=== PATIENT | female | born 1970 | race Caucasian/White ===

== ENCOUNTER 2021-07-20 11:46 | Inpatient (IN) | payer MEDICARE, MEDICAID ==
[~2021-07-20] VITALS: Ht 152.4 cm; Wt 54.9 kg
--- NOTE | ~2021-07-20 | EMS ---
[address] [address] EMS Patient Care Report Name: MAGDALENE PRABHAKAR Room: [address] IN [facility]#: [id number] Admission: 07/20/21 Attend Phys: Tonya Neff MD Discharge: Date of : 72 Report #: [id number] THIS REPORT FOR: //name// Report Transmitted: 07/20/2021 22:06 EMS Care Summary [facility] [place] [id number] @ 07/20/2021 10:53 Incident Location [address] [place], [place] [id number] Patient MAGDALENE PRABHAKAR Female, 51 Years 1970 Patient Address [address] [place] [address] Patient History Unspecified asthma,Cerebral palsy, unspecified,Spina bifida, unspecified, Patient Allergies No known allergies, Patient Medications Albuterol, levocetirizine, Ondansetron, Epipen, Chief Complaint Nausea Disposition Transported No Lights/[place] Dispatch Reason Sick Person Transported To [facility] Narrative [facility] DISP[facility]ED TO [facility]. [facility] RESPONDS WITH NO DELAYING FACTORS. UPON ARRIVAL PT IS SITTING IN RECLINER UNDER TWO BLANKETS. PT IS ALERT AND ORIENTED AT BASELINE WITH PATENT AIRWAY. PT NURSING STAFF STATES PT BEING NON-VERBAL. PT KNOWS BASIC SIGN LANGUAGE. PT HAS MANUAL VITALS OBTAINED WITH [address] [address] EMS Patient Care Report Name: MAGDALENE PRABHAKAR Room: [address] IN [facility]#: [id number] Admission: 07/20/21 Attend Phys: Tonya Neff MD Discharge: Date of : 72 Report #: [id number] LUNG SOUNDS PRESENTING CLEAR. PT NURSING STAFF STATES PT VOMITING FOR ONE WEEK AND PRESENTED THIS MORNING WITH FEVER. NURSING STAFF STATES ADMINISTERING TYLENOL AT 1050 TO PT. PT TAKES TWO STEPS TO STRETCHER AND IS ASSISTED INTO POSITION OF COMFORT. PT IS SECURED TO STRETCHER AND TRANSPORTED TO AMBULANCE WITH NO INCIDENT. ONCE IN AMBULANCE PT IS PLACED ON MONITOR. PT HAS GLUCOSE OBTAINED. PT REMAINS ALERT AND ORIENTED AT BASELINE DURING TRANSPORT. PT REMAINS ON MONITOR DURING TRANSPORT. COVID PRECAUTIONS ACTIVATED PRIOR TO ARRIVAL OF DESTINATION. AT DESTINATION PT IS REMOVED FROM MONITOR. PT IS TRANSPORTED INTO FACILITY WITH NO INCIDENT. PT IS TRANSFERRED TO ER4 BED VIA BLANKET WITH ASSISTANCE FROM NURSING STAFF. PT IS STABLE AT TIME OF PT CARE TRANSFER. PT CARE IS TRANSFERRED. FACILITY SIGNED ON PT BEHALF DUE TO PT NOT HAVING RIGHTS ON MEDICAL DECISIONS. [facility] CLEAR. Initial Vitals @11:08SpO2: 97, @11:13SpO2: 99, @11:28SpO2: 97, @11:12 @11:17 @11:27 @11:13P: 76,R: 18,BP: 113/80, @11:08P: 99,R: 18,BP: 130/82, @11:13GCS: 15, @11:08GCS: 15, @11:00Glucose: 88, Assessments @11:00MENTAL:SKIN:HEENT:LUNG SOUNDS:ABDOMEN:PELVIS//GI:EXTREMITIES:PULSE:NEURO: Impression Nausea Procedures @11:12 3-Lead ECG Response: UnchangedSucceeded @11:17 3-Lead ECG Response: UnchangedSucceeded @11:27 3-Lead ECG Response: UnchangedSucceeded Timeline 00:00,Call Received 10:52,Dispatch Notified 10:52,Psap Call 10:53,Dispatched 10:54,En Route 10:59,[place] [address] EMS Patient Care Report Name: MAGDALENE PRABHAKAR Room: [address] IN [facility]#: [id number] Admission: 07/20/21 Attend Phys: Tonya Neff MD Discharge: Date of : 72 Report #: [id number] 11:00,At Patient 11:00,BP: / M,PULSE: ,RR: R,SPO2: Ox,ETCO2: ,B,PAIN: ,GCS: , 11:08,BP: / M,PULSE: ,RR: R,SPO2: 97 Ox,ETCO2: ,BG: ,PAIN: ,GCS: , 11:08,BP: 130/82 M,PULSE: 99,RR: 18 R,SPO2: Ox,ETCO2: ,BG: ,PAIN: ,GCS: , 11:08,BP: / M,PULSE: ,RR: R,SPO2: Ox,ETCO2: ,BG: ,PAIN: ,GCS: 15, 11:12,3-Lead ECG,Response: UnchangedSucceeded, 11:12,BP: / M,PULSE: ,RR: R,SPO2: Ox,ETCO2: ,BG: ,PAIN: ,GCS: , 11:13,BP: / M,PULSE: ,RR: R,SPO2: 99 Ox,ETCO2: ,BG: ,PAIN: ,GCS: , 11:13,BP: 113/80 M,PULSE: 76,RR: 18 R,SPO2: Ox,ETCO2: ,BG: ,PAIN: ,GCS: , 11:13,BP: / M,PULSE: ,RR: R,SPO2: Ox,ETCO2: ,BG: ,PAIN: ,GCS: 15, 11:15,Depart Scene 11:17,3-Lead ECG,Response: UnchangedSucceeded, 11:17,BP: / M,PULSE: ,RR: R,SPO2: Ox,ETCO2: ,BG: ,PAIN: ,GCS: , 11:27,3-Lead ECG,Response: UnchangedSucceeded, 11:27,BP: / M,PULSE: ,RR: R,SPO2: Ox,ETCO2: ,BG: ,PAIN: ,GCS: , 11:28,BP: / M,PULSE: ,RR: R,SPO2: 97 Ox,ETCO2: ,BG: ,PAIN: ,GCS: , 11:38,At Destination 11:52,Call Closed Disclaimer v1.1 Copyright 2020 [employer] This EMS Care Summary contains data elements from the applicable legal record (which may be displayed differently). It is designed to provide pertinent information for the following purposes: continuity of care, clinical quality, and state data reporting. The complete legal record is available to ED staff and administrators of the receiving hospital in [employer]'s Patient Tracker. All data is provided "as is."
[~2021-07-20 11:46] MED LIST: ALBUTEROL SULFAT4 M1 PO; LEVOCETIRIZINE D5 MG PO; SINGULAIR 10 MG10 M1 PO
[2021-07-20] MEDS ORDERED: MIRALAX119 GM PO (11:52)
[2021-07-20] MEDS ORDERED: ZOFRAN ODT4 MG PO (11:52)
[2021-07-20 11:53] VITALS: BP 123/70
[2021-07-20 12:43] LABS: HEMATOCRIT 40.3 % (37.0-47.0); HEMOGLOBIN 13.1 gm/dL (12.0-15.0); MCH 27.5 pg (26.0-34.0); MCHC 32.4 g/dL (28.0-37.0); MCV 84.7 fL (80.0-100.0); MPV 7.8 fl. (7.2-11.1); NUCLEATED RBCS 0 /100WBC; PLATELET COUNT* 319 thou/uL (150-400); RBC 4.76 mil/uL (4.20-5.00); RDW-CV 13.3 % (10.5-14.5); WBC 13.2 thou/uL (4.0-11.0)
[2021-07-20 12:58] LABS: CALCIUM 8.9 mg/dL (8.5-10.1); CREATININE 0.5 mg/dL (0.6-1.3); POTASSIUM 3.9 mmol/L (3.5-5.1)
[2021-07-20 13:02] LABS: ALBUMIN 3.3 g/dL (3.4-5.0); TOTAL BILIRUBIN 0.8 mg/dL (<0.1-1.0); TOTAL PROTEIN 7.7 g/dL (6.4-8.2)
[2021-07-20] MEDS ORDERED: SINGULAIR 10 MG10 MG PO (13:14)
[2021-07-20] MEDS ORDERED: PATADAY2.5 ML EA. EYE (13:15)
[2021-07-20] MEDS ORDERED: DIAZEPAM 5 MG5 M1 PO (13:15)
[2021-07-20 13:20] LABS: ABSOLUTE EOSINOPHILS 0.1 thou/uL (0.0-0.7); ABSOLUTE LYMPHOCYTES 1.5 thou/uL (0.8-5.3); ABSOLUTE MONOCYTES 1.1 thou/uL (0.0-1.2); ABSOLUTE NEUTROPHILS 10.6 thou/uL (1.6-8.1)
[2021-07-20 13:21] LABS: PLATELET ESTIMATE ADEQUATE
--- NOTE | 2021-07-20 15:51 | EKG ---
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1970 Requested By: Shanell Bajwa Order Number: [id number] MD: Balaji Ramirez Measurements Intervals Lyme Rate: 99 P: 52 IN: 129 QRS: 9 QRSD: 84 T: -6 QT: 322 QTc: 414 Interpretive Statements Sinus rhythm Probable left atrial enlargement Low voltage, extremity and precordial leads RSR' in V1 or V2, right VCD Consider anterior infarct of indeterminate age No previous ECG available for comparison Electronically Signed On 07-20-2021 15:51:29 CUSTOMS PATROL OFFICER by Balaji Ramirez [email or web address] <ELECTRONICALLY SIGNED> By: Balaji Ramirez MD, [facility] 07/20/21 1551 1216 1216 Balaji Ramirez MD, [facility] /EPI
[2021-07-20 16:51] LABS: INFLUENZA A ANTIGEN Negative (Negative); INFLUENZA B ANTIGEN Negative (Negative)
[2021-07-20 19:20] VITALS: BP 120/57
[2021-07-20 23:20] VITALS: BP 118/68
[2021-07-21 04:19] VITALS: BP 116/59
[2021-07-21 08:19] VITALS: BP 109/63
[2021-07-21 08:25] LABS: HEMATOCRIT 39.2 % (37.0-47.0); HEMOGLOBIN 12.9 gm/dL (12.0-15.0); MCH 27.5 pg (26.0-34.0); MCV 83.5 fL (80.0-100.0); MPV 7.6 fl. (7.2-11.1); RBC 4.69 mil/uL (4.20-5.00)
[2021-07-21 09:40] LABS: ALBUMIN 3.2 g/dL (3.4-5.0); CALCIUM 8.8 mg/dL (8.5-10.1); CREATININE 0.5 mg/dL (0.6-1.3); MAGNESIUM 1.9 mg/dL (1.8-2.4); POTASSIUM 3.8 mmol/L (3.5-5.1); TOTAL BILIRUBIN 0.8 mg/dL (<0.1-1.0)
--- NOTE | 2021-07-21 11:03 | NUR ---
TALKED TO MOTHER RAYMON ABOUT MAGDALENE HAVING SURGERY TOMORROW. RAYMON VERBALIZED UNDERSTANDING AND GAVE CONSENT FOR DAUGHTER TO HAVE SURGERY. DR. UGALDE ALSO NOTIFIED OF VERBAL CONSENT BY MOTHER FOR DAUGHTER TO HAVE SURGERY. CONSENT OBTAINED BY THIS NURSE AND BORIS AVERY.
[2021-07-21 14:19] VITALS: BP 119/58
--- NOTE | 2021-07-21 16:16 | NUR ---
REFUSED BREAKFAST AND AM MEDICATIONS. ATE SOME JELLO FOR LUNCH. INCONT. B &B. INCONT X 2 BM. PT FOUND PLAYING WITH FECES WITH HER HANDS.
--- NOTE | 2021-07-21 16:19 | NUR ---
PT CLEANED UP X 2 AND NEW BED LINEN PUT ON.
[2021-07-21 17:10] VITALS: BP 119/58; BP 124/71
[2021-07-21 17:32] VITALS: BP 127/68
--- NOTE | 2021-07-21 18:55 | NUR ---
Pt arrived from ED at 1730. Pt is non-verbal and from jail. Mother is DPOA and deaf. Per ED RN, mother is able to communicate via telephone with soil-ms-dvml/jhui-gi-voji capabilities (in mother's possession). VSS. Pt cooperative with gentle communication, though unable to determine how much she is able to understand. Pt incontinent of drk green stool at times. Did not attempt to transfer or ambulate pt at this time. Will continue to monitor.
[2021-07-21 20:00] VITALS: BP 110/57
[2021-07-22 08:10] VITALS: BP 120/70
[2021-07-22 12:51] LABS: HEMATOCRIT 39.4 % (37.0-47.0); HEMOGLOBIN 12.3 gm/dL (12.0-15.0); MCH 27.5 pg (26.0-34.0); MCHC 31.3 g/dL (28.0-37.0); MCV 88.1 fL (80.0-100.0); MPV 7.7 fl. (7.2-11.1); RBC 4.47 mil/uL (4.20-5.00); RDW-CV 13.5 % (10.5-14.5); WBC 20.9 thou/uL (4.0-11.0)
[2021-07-22 13:05] LABS: ALBUMIN 2.9 g/dL (3.4-5.0); CALCIUM 8.6 mg/dL (8.5-10.1); CREATININE 0.7 mg/dL (0.6-1.3); MAGNESIUM 1.9 mg/dL (1.8-2.4); POTASSIUM 3.8 mmol/L (3.5-5.1); TOTAL BILIRUBIN 0.4 mg/dL (<0.1-1.0); TOTAL PROTEIN 7.6 g/dL (6.4-8.2)
[2021-07-22 13:30] VITALS: BP 127/54
[2021-07-22 16:00] VITALS: BP 116/64
--- NOTE | 2021-07-22 16:59 | NUR ---
PT HAD LAP LUIS F TODAY. OP SITES X4 WITH DERMABOND. PT'S MOTHER UPDATED. ADVANCED TO CLEAR LIQUID DIET. MESSAGE LEFT FOR SINCERE WITH HER CUSTODIAL TO SEE IF PT HAS HAD HER FLU VACCINE. NO RETURN CALL AT THIS TIME. INCONT OF BLADDER. NO STOOL TODAY. HAS NOT REQUIRED ANY PAIN MEDOICATION SINCE RETURN FROM SURGERY. CALL LIGHT IN REACH. FALL PRECAUTIONS IN PLACE.
[2021-07-22 20:00] VITALS: BP 125/70
[2021-07-23 02:29] VITALS: BP 114/62
[2021-07-23 08:00] VITALS: BP 113/75
[2021-07-23 08:38] LABS: HEMATOCRIT 36.3 % (37.0-47.0); HEMOGLOBIN 11.9 gm/dL (12.0-15.0); MCH 27.9 pg (26.0-34.0); MCHC 32.8 g/dL (28.0-37.0); MCV 84.8 fL (80.0-100.0); MPV 7.7 fl. (7.2-11.1); RBC 4.28 mil/uL (4.20-5.00); RDW-CV 13.3 % (10.5-14.5); WBC 11.6 thou/uL (4.0-11.0)
[2021-07-23 08:52] LABS: ALBUMIN 2.7 g/dL (3.4-5.0); CALCIUM 8.9 mg/dL (8.5-10.1); CREATININE 0.6 mg/dL (0.6-1.3); MAGNESIUM 1.9 mg/dL (1.8-2.4); POTASSIUM 3.6 mmol/L (3.5-5.1); TOTAL BILIRUBIN 0.4 mg/dL (<0.1-1.0); TOTAL PROTEIN 7.3 g/dL (6.4-8.2)
--- NOTE | 2021-07-23 12:30 | OP ---
[address] [address] OPERATIVE REPORT Name: MAGDALENE PRABHAKAR Room: [address] IN M.R.#: [id number] Admission: 07/20/21 Attend Phys: Tonya Neff MD Discharge: Date of : 72 Report #: [id number] THIS REPORT FOR: cc: Verito Solis Linda J. DO Harper, Charles B. III DO ~ DATE OF SURGERY: 07/22/2021 PREOPERATIVE DIAGNOSES: Acute cholecystitis and cholelithiasis, umbilical hernia. POSTOPERATIVE DIAGNOSES: Acute cholecystitis and cholelithiasis, umbilical hernia. PROCEDURE PERFORMED: Laparoscopic cholecystectomy with immunofluorescence imaging, primary repair of umbilical hernia. SURGEON: Ever العلي DO. CO-SURGEON: Alok Montenegro DO, PGY5. TAILOR FITTER: COURTNEY Harrell. ANESTHESIA: General and local. ESTIMATED BLOOD LOSS: 20. SPECIMEN: Gallbladder. COMPLICATIONS: None. HISTORY OF PRESENT ILLNESS: The patient is a 51-year-old female with cerebral palsy, who was admitted to the hospital with acute cholecystitis and possible pneumonia. We discussed with the POA risks, benefits and alternatives at length, and discussed the need for laparoscopic cholecystectomy at this time and they agreed to proceed. DESCRIPTION OF PROCEDURE: After consent was obtained, the patient was taken to the operating room and placed in the supine position. SCDs were applied to bilateral lower extremities; safety belt placed across the patient's waist. Perioperative antibiotics were continued. The patient underwent general endotracheal anesthesia without any complication. The patient's abdomen was prepped and draped in the standard sterile fashion. Timeout was performed to confirm patient and procedure. A 15 blade scalpel was used to make a transverse incision just below the umbilicus. The umbilical hernia was reduced into the abdomen and a 12 mm Vinod trocar was inserted into [place] [address] OPERATIVE REPORT Name: MAGDALENE PRABHAKAR Bladimir Room: [address]#: [id number] Admission: 07/20/21 Attend Phys: Tonya Neff MD Discharge: Date of : 72 Report #: [id number] was initiated. Intraabdominal contents were inspected. There was a big sheet of the mesentery overlying the gallbladder. A 5 mm trocar was placed subxiphoid and a suction microsoft exchange architect was used to sweep the inflamed mesentery off of the gallbladder. The gallbladder was extremely distended and edematous. Two more trocars, 5 mm were placed in the right upper quadrant. Adhesions were taken off the gallbladder bluntly and with electrocautery. An aspiration needle was inserted into the gallbladder and 30 mL of bile was aspirated. The gallbladder was then grasped and elevated. Attention was turned towards Sarah's pouch. The visceral peritoneum overlying Sarah's pouch was scored with electrocautery and carried laterally and medially. Blunt sweep was performed to help visualize both the cystic duct and the cystic artery. [place] dissector was used to circumferentially isolate the cystic duct from surrounding structures along with the cystic artery on the medial aspect. Both structures were seen going up into the gallbladder. Three clips were placed on both duct and the artery after critical view of safety was obtained. Both structures were cut. Just posterior to the duct, there was another small artery going up into the gallbladder. This was triply clipped and cut. After confirming it was indeed going into the gallbladder, the gallbladder was then carefully dissected off the bed of the liver using hook electrocautery. Once the gallbladder was completely removed, it was placed in laparoscopic EndoCatch bag. The liver bed was inspected and hemostasis was ensured with electrocautery. Right upper quadrant was irrigated copiously and all fluid was suctioned out. Once hemostasis was completely confirmed, the patient was turned back to the neutral position and all trocars were removed under direct visualization. The gallbladder and its contents were removed from the infraumbilical trocar site. Infraumbilical fascia was reapproximated with 2 stitches of 0 Prolene in a gyfibd-uv-mwnxz fashion completing the primary repair of her umbilical hernia. Subcutaneous tissue was reapproximated with 3-0 Vicryl. All skin incisions reapproximated with 4-0 Monocryl. The patient was awoken from general anesthesia and transferred to PACU in stable condition. <ELECTRONICALLY SIGNED> By: Ever العلي III, DO 07/23/21 1230 1009 1112Calphonso العلي III DO /nt
[2021-07-23 12:46] VITALS: BP 103/41
--- NOTE | 2021-07-23 18:59 | NUR ---
PT WAS RESTING ON HER BED TRYING TO GET UP. PT HAD AN ACCIDENT IN THE BED. PT CLEANED UP AND PLACED BACK IN HER BED. PT THEN GOT UP AGAIN BY HERSELF AND WAS CAUGHT AND WE PICKED HER UP AND PLACED HER IN HER BED. PT KEPT POINTING TO HER ABD AND WOULD NOT WERE HER CLOTHES OR COVER UP WITH BLKANKETS. PT PULLED OUT HER IV. AND WOULD NOT EAT OR TAKE ANY OF HER MEDICATIONS EVEN WHEN PUT IN APPLE SAUCE. VSS AFEBRILE. PT CAN GOT HOME WHEN SHE STARTS EATING. WILL CONTINUE TO MONITOR PLAN OF CARE. PT MOTHER HERE TODAY TO SEE HER.
[2021-07-23 21:00] VITALS: BP 132/72
[2021-07-24 01:20] VITALS: BP 100/45
[2021-07-24 05:50] LABS: HEMATOCRIT 36.2 % (37.0-47.0); HEMOGLOBIN 11.7 gm/dL (12.0-15.0); MCH 27.3 pg (26.0-34.0); MCHC 32.2 g/dL (28.0-37.0); MCV 84.9 fL (80.0-100.0); MPV 7.8 fl. (7.2-11.1); RBC 4.27 mil/uL (4.20-5.00); RDW-CV 13.3 % (10.5-14.5); WBC 8.4 thou/uL (4.0-11.0)
--- NOTE | 2021-07-24 06:00 | NUR ---
ASSUMED CARES AT 1920. ALERT BUT NONVERBAL. CAN BE IMPULSIVE AND COMBATIVE. TOOK PILLS CRUSHED WITH APPLESAUCE. REFUSED ADDITIONAL FOODS/DRINKS WHEN OFFERED. INCONTINENT BOWEL AND BLADDER. SLEPT SOME OFF AND ON.
[2021-07-24 07:53] LABS: ALBUMIN 2.9 g/dL (3.4-5.0); CALCIUM 8.5 mg/dL (8.5-10.1); CREATININE 0.5 mg/dL (0.6-1.3); POTASSIUM 3.6 mmol/L (3.5-5.1); TOTAL BILIRUBIN 0.4 mg/dL (<0.1-1.0); TOTAL PROTEIN 6.5 g/dL (6.4-8.2)
[2021-07-24 08:00] VITALS: BP 118/65
[2021-07-24 12:24] VITALS: BP 132/68
--- NOTE | 2021-07-24 15:27 | NUR ---
CM ASSESSMENT: CM SPOKE TO THE PT'S BRITTNYHER AT THE BEDSIDE. PT'S MOTHER INFORMS THAT SHE IS DEAF, BUT IS ABLE TO READ LIPS. PT'S MOTHER INFORMS THAT THE PT RESIDE AT A [facility] AND THE THE STAFF THERE ASSIST THE PT WITH ALL CARES AND FEEDING. PLAN IF FOR THE PT TO RETURN TO THE [facility] AT D/C. CM WILL REMAIN AVAILABLE TO ASSIST AND FOLLOW NEEDED.
--- NOTE | 2021-07-24 16:18 | NUR ---
AM ASSESSMENT AND VITAL SIGNS CONMPLETED DOCUMENTED. PT DOESN'T EXHIBIT ANY SIGNS OF DISCOMFORT. MEDICATIONS WERE CRUSHED IN PUDDING AND PATIENT ONLY TOOK ONE BITE. LAP SITES X 4 ARE CLEAN AND DRY. PT'S APPETITE HAS BEEN POOR BUT SHE DRINKS THE ENSURE PLUS WITH EACH MEAL. FREQUENT OBSERVATION AND FALL PRECAUTIONS IN PLACE.
[2021-07-24 20:23] VITALS: BP 127/66
--- NOTE | 2021-07-25 04:19 | NUR ---
PT NON VERBAL, ALERT TO SELF, CANNOT COMMUNICATE NEEDS TO STAFF. HAD SEVERAL BM OVERNIGHT, INCONTINENT OF BOWEL AND BLADDER. SHE APPEARED TO SLEEP WELL THIS SHIFT AND WOULD CALL OUT WHEN NEEDING CLEANED OR MOVED. SHE TOOK HER MEDS CRUSHED IN APPLESAUCE BUT WAS RESISTANT TO DRINK MUCH WATER. NO IV ACCESS AT THIS TIME. WILL CONTINUE TO MONITOR.
[2021-07-25 06:40] LABS: CALCIUM 8.3 mg/dL (8.5-10.1); CREATININE 0.4 mg/dL (0.6-1.3)
[2021-07-25 07:40] VITALS: BP 136/93
[2021-07-25 16:00] VITALS: BP 117/73
--- NOTE | 2021-07-25 16:20 | NUR ---
PATIENT NON VERBAL THIS SHIFT EXCEPT FOR SAYING HI TO STAFF. PATIENT IS COMBATIVE WHEN INCONTINENT AND BEING CHANGED. DR. HOFFMANN NOTIFIED OF LOOSE STOOL. MEDS CRUSHED AND PUT IN APPLESAUCE, PATIENT TOOK WITHOUT DIFFICULTY. PATIENT WAS GIVEN POTASSIUM X1 PER PROTOCOL DISSOLVED IN ENSURE. PATIENT ASSISTED WITH FEEDING BUT DOES HAVE POOR APPETITE. IV WAS PLACED TO LEFT FA BY IV NURSE PER DR. GONZALES ORDERS FOR IVF. PATIENT CURRENTLY HAS 1:1 SITTER WHILE ON IVF PER DR. GONZALES ORDERS. FALL RISK PROTOCOL IN PLACE.
[2021-07-25 20:14] VITALS: BP 111/62
[2021-07-26 01:57] LABS: HEMATOCRIT 34.2 % (37.0-47.0); HEMOGLOBIN 11.2 gm/dL (12.0-15.0); MCH 27.6 pg (26.0-34.0); MCHC 32.8 g/dL (28.0-37.0); MPV 7.3 fl. (7.2-11.1); RBC 4.08 mil/uL (4.20-5.00); RDW-CV 13.3 % (10.5-14.5); WBC 6.5 thou/uL (4.0-11.0)
[2021-07-26 02:14] LABS: ALBUMIN 2.7 g/dL (3.4-5.0); CALCIUM 8.6 mg/dL (8.5-10.1); CREATININE 0.4 mg/dL (0.6-1.3); MAGNESIUM 1.9 mg/dL (1.8-2.4); POTASSIUM 3.7 mmol/L (3.5-5.1); TOTAL BILIRUBIN 0.2 mg/dL (<0.1-1.0); TOTAL PROTEIN 6.5 g/dL (6.4-8.2)
--- NOTE | 2021-07-26 03:08 | NUR ---
AT APPROX 2130 PT SLIGHTLY AGITATED, BENADRYL GIVEN AT 2140. AT 2252 IV INSERTED AGITATION ESCULATED WITH INSERTION. AT 2315 PT SEVERLY AGITATED, HITING, BITING AND SCREAMING; DIAZAPAM PO GIVEN ORDERED. AT 0030 PT STILL SEVERLY AGITATED. AT 0031 YOU CALL SENT TO PHYSICIAN, POM ORDER INPUT BY DR. HOFFMANN FOR HALOPERIDOL 5MG IM ONETIME; GIVEN ODERED. AT APPROX 0230 PT SLEEPING, IV FLUIDS INFUSING ORDERED.
[2021-07-26 08:30] VITALS: BP 126/77
[2021-07-26] MEDS ORDERED: CEFDINIR300 MG PO (10:06)
[2021-07-26] MEDS ORDERED: IBUPROFEN 600600 M1 PO (10:06)
[2021-07-26] MEDS ORDERED: DOXYCYCLINE 10100 MG PO (10:06)
[2021-07-26 11:47] VITALS: BP 126/77
[2021-07-26 15:18] VITALS: BP 126/77
--- NOTE | 2021-07-26 15:20 | NUR ---
PATIENT DISCHARGED AT THIS TIME VIA STRETCHER ACCOMPANIED BY EMS TO [facility]. X4 INCISIONS TO ABDOMEN INTACT WITH DERMABOND. REPORT GIVEN TO SINCERE AT [facility].
--- NOTE | 2021-07-26 16:03 | NUR ---
PLAN FOR THE PT TO D/C TODAY BACK TO HER CORRECTION WITH HH. CM ARRANGED HH WITH [facility] PER PT'S MOTHER'S CHOICE. RN TO CALL REPORT TO NURSE AT THE CORRECTION. TRANSPORT ARRANGED WITH [facility] NON-EMERGENT TRANSPORT. CM WILL REMAIN AVAILABLE TO ASSIST AND FOLLOW NEEDED.
[2021-07-27 11:07] LABS: HBsAG-EMPLOYEE EXPOSURE Negative (Negative)
--- NOTE | 2021-07-28 11:35 | PATH ---
[address] [address] PATHOLOGY RPT PROCEDURE Name: VANNAMAGDALENE S Room: [address] IN .R.#: [id number] Admission: 07/20/21 Date of : 72 Discharge: 07/26/21 Report #: [id number] Path Case #: [id number] [facility] Accession Number: [id number] . 01 Material submitted: . gallbladder - GALLBLADDER . 01 Clinical history: . CHOLECYSTITIS ABDOMINAL PAIN . 02 Diagnosis: Gallbladder: - Chronic and acute ulcerative cholecystitis with cholelithiasis, scant attached benign liver tissue and benign lymph node. (ISABELLE:sweetie; 07/25/2020) S 07/25/2021 1325 Local . 02 Electronically signed: . Carlton Alvarenga MD, Pathologist NPI- [id number] . 01 Gross description: . Fixative: Formalin Labeled: Gallbladder Specimen received: Previously disrupted gallbladder Dimensions: 11.1 x 3.8 x 3.6 cm Serosa: Purple-ferro and smooth to slightly roughened Lymph node: Possibly identified Mucosa: Red-brown and smooth to irregular Average wall thickness: Up to 0.6 cm Calculi: Present displaying a yellow and multifaceted appearance Abnormalities: None identified . A1- Telephone Switchboard Operator body, fundus, and the cystic duct margin. A2- Possible lymph node, bisected ([facility]; 07/24/2021) NRI/NRI 07/24/2021 1502 Local . 02 Pathologist provided ICD-10: K80.12 . 02 CPT . 228782 Specimen Comment: A courtesy copy of this report has been sent to [phone] Specimen Comment: [id number] Specimen Comment: Report sent to / DR HOFFMANN Specimen Comment: A duplicate report has been [place] [address] PATHOLOGY RPT PROCEDURE Name: MAGDALENE PRABHAKAR Room: [address] IN [facility]#: [id number] Admission: 07/20/21 Date of : 72 Discharge: 07/26/21 Report #: [id number] Path Case #: [id number]. Performed at: 01 [facility] [place] [address] [facility] [address], [place], [place] [id number] MD Ed Cook MD Phone: [phone] Performed at: [address] [facility] [address] [facility] [address], [place], [place] [id number] MD Carlton Alvarenga MD Phone: [phone]
== END 2021-07-26 15:15 | disposition home health service (06) | DRG 417 ==
LOC: M.ERS 11:46 → M.2W 16:02 → M.TBA-ER 16:02 → M.2W 07-21 17:25
PROVIDERS: Physician Assistant; Surgery; ADMIT Internal Medicine; ATTEND Internal Medicine
PROC: 0WQF4ZZ Repair Abdominal Wall, Percutaneous Endoscopic Approach (ICD-10-PCS; principal; 2021-07-22)
PROC: 0FT44ZZ Resection of Gallbladder, Percutaneous Endoscopic Approach (ICD-10-PCS; principal; 2021-07-22)
DX: K80.00 Calculus of gallbladder with acute cholecystitis without obstruction (principal); J15.9 Unspecified bacterial pneumonia; J12.9 Viral pneumonia, unspecified; R65.10 Systemic inflammatory response syndrome (SIRS) of non-infectious origin without acute organ dysfunction; E87.0 Hyperosmolality and hypernatremia; K42.9 Umbilical hernia without obstruction or gangrene; G80.9 Cerebral palsy, unspecified; E87.6 Hypokalemia; E86.0 Dehydration; Z20.822 Contact with and (suspected) exposure to COVID-19; Z79.899 Other long term (current) drug therapy